=== PATIENT | female | born 1985 | race African-American/Black ===

== ENCOUNTER 2018-04-08 05:25 | Emergency (ER) | payer SELFPAY ==
[2018-04-08] MEDS ORDERED: Metoclopramide HCl 10 MG/2 ML VIAL ONE (06:09)
[2018-04-08] MEDS ORDERED: diphenhydrAMINE 50 MG/ML VIAL ONE (06:09)
[2018-04-08 06:21] LABS: Pregnancy Test - Urine (BHCG) Negative (Negative); Pregu Control Background? CLEAR/WHITE (CLR/WHITE); Pregu Control Bar Appear? YES (CONTROL BAR); Specific Gravity 1.021 (1.002-1.036)
[2018-04-08] MEDS ORDERED: Ketorolac Tromethamine 30 MG/ML VIAL ONE (06:46)
== END 2018-04-08 07:56 | disposition home or self-care (01) ==
LOC: ERS 05:25
DX: R51 Headache (principal); F41.9 Anxiety disorder, unspecified; F31.9 Bipolar disorder, unspecified; F17.210 Nicotine dependence, cigarettes, uncomplicated
CPT/HCPCS: 81025; 96361; 96374; 96375; J1200; J1885; J2765

== ENCOUNTER 2018-04-25 12:17 | Emergency (ER) | payer SELFPAY ==
[2018-04-25] MEDS ORDERED: Acetaminophen 500 MG TAB ONE (12:35)
[2018-04-25] MEDS ORDERED: Metoclopramide HCl 10 MG/2 ML VIAL ONE (12:35)
[2018-04-25] MEDS ORDERED: diphenhydrAMINE 25 MG CAP ONE (12:35)
== END 2018-04-25 14:58 | disposition home or self-care (01) ==
LOC: ERS 12:17
DX: G43.909 Migraine, unspecified, not intractable, without status migrainosus (principal); F31.9 Bipolar disorder, unspecified; F41.9 Anxiety disorder, unspecified; F17.210 Nicotine dependence, cigarettes, uncomplicated
CPT/HCPCS: 96365; J2765

== ENCOUNTER 2019-10-18 13:26 | Emergency (ER) | payer SELFPAY ==
[2019-10-18] MEDS ORDERED: Proparacaine 0.5% Opth 15 ML BOT ONE (14:39)
== END 2019-10-18 15:08 | disposition home or self-care (01) ==
LOC: ERS 13:26
DX: L03.213 Periorbital cellulitis (principal); G43.909 Migraine, unspecified, not intractable, without status migrainosus; F41.9 Anxiety disorder, unspecified; F31.9 Bipolar disorder, unspecified; F17.210 Nicotine dependence, cigarettes, uncomplicated
CPT/HCPCS: 99283

== ENCOUNTER 2021-09-09 16:38 | Emergency (ER) | payer MEDICAID ==
[2021-09-09 17:03] LABS: Bacteria/HPF 1+ HPF (None Seen); Bilirubin Negative (Negative); Blood, Urine 3+ (Negative); Clarity Turbid (Clear); Glucose, Urine (Dipstick) Normal (Negative); Ketone, Urine Negative (Negative); Leukocyte Negative Leu/uL (Negative); Nitrite Negative (Negative); Protein, Urine (Dipstick) 30 mg/dL (Neg-Trace); pH, Urine 5.5 (5.0-9.0)
[2021-09-09 17:04] LABS: Pregnancy Test - Urine (BHCG) POSITIVE (Negative); Pregu Control Background? CLEAR/WHITE (CLR/WHITE); Pregu Control Bar Appear? YES (CONTROL BAR)
== END 2021-09-09 18:55 | disposition home or self-care (01) ==
LOC: ERS 16:38
DX: O20.0 Threatened abortion (principal); O99.351 Diseases of the nervous system complicating pregnancy, first trimester; G43.909 Migraine, unspecified, not intractable, without status migrainosus; O99.331 Smoking (tobacco) complicating pregnancy, first trimester; F17.210 Nicotine dependence, cigarettes, uncomplicated; Z3A.01 Less than 8 weeks gestation of pregnancy
CPT/HCPCS: 36415; 81003; 81015; 81025; 84702; 86900; 86901; 87086; 99284

== ENCOUNTER 2022-07-19 15:45 | Emergency (ER) | payer MEDICAID, OTHER ==
[2022-07-19 16:11] LABS: Bacteria/HPF None Seen HPF (None Seen); Bilirubin Negative (Negative); Blood, Urine Trace (Negative); Clarity Turbid (Clear); Glucose, Urine (Dipstick) Normal (Negative); Ketone, Urine Negative (Negative); Leukocyte Negative Leu/uL (Negative); Nitrite Negative (Negative); Protein, Urine (Dipstick) Negative (Neg-Trace); RBC/HPF 0-3 HPF (0-3); Squamous Epithelial 0-3 HPF (0-3); Urobilinogen Normal mg/dL (Less than 2); WBC/HPF 0-3 HPF (0-3)
[2022-07-19 16:12] LABS: Pregnancy Test - Urine (BHCG) Negative (Negative); Pregu Control Background? CLEAR/WHITE (CLR/WHITE); Pregu Control Bar Appear? YES (CONTROL BAR)
== END 2022-07-19 19:21 | disposition home or self-care (01) ==
LOC: ERS 15:45
DX: N92.6 Irregular menstruation, unspecified (principal); F17.210 Nicotine dependence, cigarettes, uncomplicated
CPT/HCPCS: 76856; 81003; 81015; 81025

== ENCOUNTER 2023-07-07 15:02 | Emergency (ER) | payer OTHER, SELFPAY ==
[2023-07-07] MEDS ORDERED: Lidocaine 1% w/Epinephrine 1:100K 20 ML VIAL ONE (16:01)
[2023-07-07] MEDS ORDERED: HYDROcodone/Acetaminophen 5/325 mg Tablet ONE (16:17)
[2023-07-07] MEDS ORDERED: Boostrix 0.5 ML (Tdap) VIAL (>/=7 yrs of age) ONE (16:23)
== END 2023-07-07 16:45 | disposition home or self-care (01) ==
LOC: ERS 15:02
DX: L02.411 Cutaneous abscess of right axilla (principal); F17.210 Nicotine dependence, cigarettes, uncomplicated
CPT/HCPCS: 10060; 87070; 87205; 90471; 90715